=== PATIENT | female | born 1985 | race Caucasian/White ===

== ENCOUNTER 2024-07-12 11:23 | Emergency (ER) | payer BC, SELFPAY ==
--- NOTE | 2024-07-12 11:30 | ED.GENMED ---
History of Present Illness
General
Chief Complaint: Crisis Evaluation
Source: patient, family (Father) and police
Exam Limitations: clinical condition
Time Seen by Provider: 07/12/24 11:28
Nursing documentation reviewed up to this point in time: agreed with
History of Present Illness
History of Present Illness:
39-year-old female with a past medical history of PTSD, anxiety, bipolar disorder who presents to the emergency room in police custody brought in on a 302 which was filed by police due to paranoia and mirella. She is accompanied by her father.
According to police report patient has had multiple calls to 911 reporting that she is being stalked. They did a wellness check and found that her house was disheveled and patient did not appear to be caring for herself. She apparently has been
awake for about 5 days according to the father. He says this is consistent with prior episodes of mirella. Patient is very agitated and difficult to redirect�she is having flights of ideas and is very paranoid.
Past History
Past History
ED Past Medical History: Psychiatric (Anxiety, bipolar disorder, psychosis)
ED Past Surgical History: None
Patient has exhibited threatening behavior?: No
Social History
Tobacco: Non-smoker
Alcohol: Occasional
Drug: Marijuana
Personal: Single
Living: with family
Employment: Not employed
Family History
Family History: Other (Noncontributory)
Review of Systems
Review of Systems
Unable to obtain full review of systems at this time due to: due to acuity
All Other Systems: Not applicable
Phy Exam
Physical Exam
Physical Exam:
General: Patient appears disheveled, pacing around the room, very agitated
HEENT: protecting airway
Neck: appears supple
CV: No evidence of cyanosis
Resp: No accessory muscle use
Abd: Non-distended
Extremities: No deformities
Neuro: Alert
Psych: Patient is agitated, paranoid, flights of ideas and pressured speech; reports anxious mood and has a labile affect
Skin: Intact
Scores
Heart Failure Risk
Heart Failure Risk Score: Not Applicable
Heart Score for Chest Pain Patients
STEMI patient?: Not applicable
Withdrawal Assessment of Alcohol
Withdrawal Assessment Completed?: Not applicable
Course
Orders/Labs/Results
Orders:
Orders
07/12/24 11:29
Haloperidol Lactate [Haldol] 5 mg .ROUTE .STK-MED ONE
Lorazepam [Ativan] 2 mg .ROUTE .STK-MED ONE
07/12/24 11:30
Haloperidol Lactate [Haldol] 5 mg IM NOW STA
Lorazepam [Ativan] 2 mg IM NOW STA
07/12/24 11:37
Drug Screen, Urine [Urine Drug Abuse Screen] Urgent
Test Result ONCE
07/12/24 11:38
Electrocardiogram (*1) Urgent
Reason for Study: QTc Monitoring
EKG- Treatment ONCE
07/12/24 12:36
Acetaminophen Urgent
Alcohol Urgent
Complete Blood Count/With Diff Urgent
Comprehensive Metabolic Panel Urgent
HCG, Serum Qualitative Screen Urgent
Abnormal Lab Results
07/12/24
12:36
WBC 15.2 H 10^3/uL
(4.8-10.8)
Plt Count 410 H 10^3/uL
(130-400)
Abs Immat Gran (auto) 0.1 H 10^3/uL
(0-0.05)
Absolute Neuts (auto) 12.7 H 10^3/uL
(1.4-6.5)
Absolute Monos (auto) 0.7 H 10^3/uL
(0.1-0.6)
Neutrophils % 83.7 H %
(42.2-75.2)
Lymphocytes % 10.7 L %
(20.5-51.1)
Carbon Dioxide 17 L mmol/L
(22-30)
Glucose 120 H mg/dl
(70-99)
AST 39 H U/L
(14-36)
Acetaminophen < 10 L ug/ml
(10-30)
07/12/24 12:36
07/12/24 12:36
Vital Signs
Initial and Last Documented VS:
Initial Vital Signs
Temp Pulse Resp BP Pulse Ox
37.1 C 112 20 163/106 96
07/12/24 11:44 07/12/24 11:44 07/12/24 11:44 07/12/24 11:44 07/12/24 11:44
Last Documented Vital Signs
Temp Pulse Resp BP Pulse Ox
37.1 C 112 20 163/106 96
07/12/24 11:44 07/12/24 11:44 07/12/24 13:00 07/12/24 11:44 07/12/24 11:44
MDM/Problems Addressed
Differential Diagnosis Includes:
Mirella, schizophrenia/psychotic disorder
MDM/Problems Addressed:
39-year-old female presents to the emergency room on a 302 for paranoia and manic behavior. Multiple visits in the past and hospitalizations for this in the past. She is very agitated, screaming and difficult to redirect�she is clearly very
paranoid. Will treat with Haldol/Ativan for chemical restraint as patient actively trying to leave the ER and paranoid/psychotic state. Crisis team at bedside during initial assessment. Will send screening labs and monitor pending psychiatry
evaluation.
Labs reviewed and no clinically significant abnormalities. EKG shows acceptable QTc. Clinical reassessment patient is resting comfortably in bed now. She is much more coherent still reporting some paranoid thoughts but appears much more calm.
She was seen by our psychiatrist here after receiving sedative medications�psychiatry discharging from 302 commitment instead opting for intense outpatient treatment. Patient working with our crisis team to arrange for intensive outpatient
treatment; ultimately will be discharged.
Chronic conditions affecting care:
PTSD, bipolar disorder
*Pulse Oximetry
Patient hypoxic: no
*EKG
Interpreted by ED Provider?: Yes
Heart Rate: 81
Rate: normal
Rhythm: sinus
[place]: normal axis
Interval: normal interval and normal QT interval
QRS Pattern: normal QRS
Ischemia: no ischemia
*Critical Care Note
Total Time (30-74mins, 75-104mins- exclusive of procedures): Not Applicable
Data Reviewed
Source: patient, records, family and police
Patient Management
Social determinants of health affecting care: Living situation
Discussion with other providers: Continuous Absorption Process Operator (Discussed with psychiatrist) and Other (Discussed with crisis team)
ED Attending Note
-
Portions of this chart may have been created with voice recognition software.� Occasional wrong word or��sound alike� substitutions may have occurred due to the inherent limitations of voice recognition software.
Discharge Plan
Departure
Discharge Problem:
Bipolar disorder with severe mirella, Paranoid behavior
Instructions: Bipolar disorder
Prescriptions:
No Action
norethindrone ac-eth estradiol [10/30 (21)] 1 TAB tablet
1 tab PO DAILY
Activity Restrictions/Additional Instructions:
Follow-up with the intensive outpatient psychiatric treatment program as directed by our crisis team.
Interventions
Interventions:
*Risk Screen - Suicide Last Done: 07/12/24 11:45
*General Assessment Last Done: 07/12/24 11:26
*Neglect/Abuse Screening Last Done: 07/12/24 11:45
*ED COVID-19 Vaccine History Last Done: 07/12/24 11:45
ED-Psychological Assessment Last Done: 07/12/24 11:46
Discharge Date and Time
Print Language: GREENLANDIC
[2024-07-12] MEDS: ATIVAN 2 MG IM (11:33)
[2024-07-12] MEDS: HALDOL 5 MG IM (11:33)
[2024-07-12 11:44] VITALS: BP 163/106
[2024-07-12 12:47] LABS: % Basophils 0.5 % (0-2); % Eosinophils 0.1 % (0-6); % Immature Granulocytes 0.4 % (0-0.5); % Lymphocytes 10.7 % (20.5-51.1); % Monocytes 4.6 % (1.7-9.3); % Neutrophils 83.7 % (42.2-75.2); Absolute Basophils 0.1 10^3/uL (0-0.2); Absolute Immature Granulocytes 0.1 10^3/uL (0-0.05); Absolute Lymphocytes 1.6 10^3/uL (1.2-3.4); Absolute Monocytes 0.7 10^3/uL (0.1-0.6); Absolute Neutrophils 12.7 10^3/uL (1.4-6.5); Hematocrit 42.6 % (37.0-47.0); Hemoglobin 15.2 g/dL (12.0-16.0); Mean Corp Hgb Conc. 35.7 g/dL (33.0-37.0); Mean Corpuscular Volume 86.9 fL (81.0-99.0); Mean Platelet Volume 9.1 fL (7.4-10.4); Nucleated Red Blood Cells % 0 %; Platelet Count 410 10^3/uL (130-400); Red Cell Dist. Width 12.4 % (11.5-14.5); White Blood Cell Count 15.2 10^3/uL (4.8-10.8)
[2024-07-12 13:01] LABS: HCG, Serum Qualitative Screen Negative
[2024-07-12 13:05] LABS: ALT (SGPT) 30 U/L (0-35); AST (SGOT) 39 U/L (14-36); Acetaminophen < 10 ug/ml (10-30); Albumin 4.8 g/dl (3.5-5.0); Alkaline Phosphatase 91 U/L (38-126); Blood Urea Nitrogen 14 mg/dl (7-17); Calcium 10.1 mg/dl (8.4-10.2); Carbon Dioxide 17 mmol/L (22-30); Chloride 107 mmol/L (98-107); Glucose 120 mg/dl (70-99); Potassium 4.1 mmol/L (3.5-5.1); Sodium 140 mmol/L (135-145); Total Bilirubin 0.9 mg/dl (0.2-1.3); Total Protein 7.3 g/dl (6.3-8.2); eGFR > 60.00
[2024-07-12 13:11] LABS: Alcohol None Detected
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
[2024-07-12 15:51] VITALS: BP 144/89
== END 2024-07-12 16:12 | disposition home or self-care (01) ==
LOC: EMR 11:23
PROVIDERS: EMERGENCY PHYSICIAN Emergency Medicine; OTHER PHYSICIAN Psychiatry & Neurology Psychiatry
DX: F31.9 Bipolar disorder, unspecified (principal); F22 Delusional disorders; F30.9 Manic episode, unspecified; R45.1 Restlessness and agitation; Z65.3 Problems related to other legal circumstances; M32.9 Systemic lupus erythematosus, unspecified; F29 Unspecified psychosis not due to a substance or known physiological condition; F41.9 Anxiety disorder, unspecified; F43.10 Post-traumatic stress disorder, unspecified; J45.909 Unspecified asthma, uncomplicated; Z88.8 Allergy status to other drugs, medicaments and biological substances; Z91.012 Allergy to eggs; Z91.040 Latex allergy status
CPT/HCPCS: 99284; 96372 ×2; 80053; 80143; 82077; 84703; 85025; 93005

== ENCOUNTER 2024-07-14 03:26 | Emergency (ER) | payer BC, SELFPAY ==
--- NOTE | 2024-07-14 03:46 | ED.GENMED ---
History of Present Illness
General
Chief Complaint: Crisis Evaluation
Source: patient, ambulance crew and police
Exam Limitations: clinical condition
Time Seen by Provider: 07/14/24 03:46
History of Present Illness
History of Present Illness:
39-year-old female presents after she was earlier here in triage and was somewhat manic. She was stating that there was someone in her house. Security was called and railroader did not take her to the house to reassure her. The patient was recently
released from a 302. Police states that she has been quite manic and rambling. the pt is quite manic on evaluation. she does not report SI
Past History
Past History
ED Past Medical History: Psychiatric (Anxiety, bipolar disorder, psychosis)
ED Past Surgical History: None
Patient has exhibited threatening behavior?: No
Social History
Tobacco: Non-smoker
Alcohol: Occasional
Drug: Marijuana
Personal: Single
Living: with family
Employment: Not employed
Family History
Family History: Other (Noncontributory)
Phy Exam
Physical Exam
Physical Exam:
CONSTITUTIONAL Vital signs reviewed, Patient alert and oriented to person. Agitated
HEAD atraumatic, normocephalic.
EYES eyelids normal to inspection, Extraocular muscles intact, Conjunctiva normal, Sclera normal.
NECK normal range of motion, Trachea midline, no jugular venous distention.
RESP no respiratory distress
BACK No obvious deformities
UPPER EXTREMITY Gross Range of motion normal, gross motor strength normal, some healing bruising to the inside of the right upper extremity.
LOWER EXTREMITY Gross range of motion normal, Gross motor strength normal
NEURO Speech pressured, No focal motor deficits include, Cranial Nerves intact to screening exam.
SKIN Skin warm, dry, and normal in color.
PSYCHIATRIC Patient agitated, rambling, pressured speech
Course
Orders/Labs/Results
Orders:
Orders
07/14/24 03:33
Haloperidol Lactate [Haldol] 10 mg .ROUTE .STK-MED ONE
Lorazepam [Ativan] 2 mg .ROUTE .STK-MED ONE
07/14/24 03:47
Haloperidol Lactate [Haldol] 10 mg IM NOW STA
07/14/24 03:51
Lorazepam [Ativan] 2 mg IM NOW STA
07/14/24 03:55
Test Result ONCE
07/14/24 04:02
Fentanyl, Urine Urgent
, Urine Qualitative Screen [HCG, Urine Qualitative Screen] Urgent
Date Specimen was Collected: 07/14/24
Time Specimen was Collected: 03:55
Urine Drug Abuse Screen Urgent
Date Specimen was Collected: 07/14/24
Time Specimen was Collected: 03:55
07/14/24 04:20
Crisis Consult Urgent
Reason for Consult: manic behavior
Abnormal Lab Results
07/14/24
04:02
U Benzodiazepines Scrn Positive H
(Negative)
U Marijuana (THC) Screen Positive H
(Negative)
Vital Signs
Initial and Last Documented VS:
Initial Vital Signs
Temp Pulse BP Pulse Ox
97.9 F 118 151/94 97
07/14/24 05:03 07/14/24 05:03 07/14/24 05:03 07/14/24 05:03
Last Documented Vital Signs
Temp Pulse Resp BP Pulse Ox
97.9 F 118 18 151/94 97
07/14/24 05:03 07/14/24 05:03 07/14/24 06:00 07/14/24 05:03 07/14/24 05:03
MDM/Problems Addressed
MDM/Problems Addressed:
Acute roberto, acute psychosis
*Pulse Oximetry
Patient hypoxic: no
*Critical Care Note
Total Time (30-74mins, 75-104mins- exclusive of procedures): 30 minutes
Data Reviewed
Source: patient and police
Patient Management
Escalation/DeEscalation of care consider admission/obs:
302 by police. Patient is acutely psychotic. Settled down after Haldol and Ativan. Admit to psychiatric facility
ED Attending Note
-
Portions of this chart may have been created with voice recognition software.� Occasional wrong word or��sound alike� substitutions may have occurred due to the inherent limitations of voice recognition software.
Discharge Plan
Departure
Patient Disposition: Psych Facility
Date of Disposition: 07/14/24
Time of Disposition: 03:46
Discharge Problem:
Acute psychosis
Prescriptions:
No Action
norethindrone ac-eth estradiol [10/30 ()] 1 TAB tablet
1 tab PO DAILY
Interventions
Interventions:
*Risk Screen - Suicide Last Done: 07/14/24 04:19
*General Assessment Last Done: 07/14/24 04:19
*Neglect/Abuse Screening Last Done: 07/14/24 04:19
*ED COVID-19 Vaccine History Last Done: 07/14/24 04:18
ED-Psychological Assessment Last Done: 07/14/24 04:17
Discharge Date and Time
Print Language: SENEGALESE
[2024-07-14] MEDS: HALDOL 10 MG IM (03:50)
[2024-07-14] MEDS: ATIVAN 2 MG IM ×2 (03:52→07:51)
[2024-07-14 04:25] LABS: HCG, Urine Qualitative Screen Negative
[2024-07-14 05:03] VITALS: BP 151/94
[2024-07-14 05:06] LABS: Amphetamines Negative (Negative); Barbiturates Negative (Negative); Benzodiazepines Positive (Negative); Buprenorphine Negative (Negative); Cocaine Negative (Negative); Marijuana Positive (Negative); Methadone Negative (Negative); Methamphetamines Negative (Negative); Opiates Negative (Negative); Phencyclidine Negative (Negative); Tricyclic Antidepressants Negative (Negative)
[2024-07-14 05:22] LABS: Fentanyl, Urine Negative (Negative)
--- NOTE | 2024-07-14 08:34 | ED.CRISIS ---
ED Crisis Note
ED Crisis Note
Subjective:
Patient currently a psychiatric committal for psychosis. Agitated pacing the halls.
Objective:
Pacing agitated not an immediate danger could progress to that level. In no distress.
Assessment/Plan:
Patient had received Ativan. Contacted psychiatry for further input. However since that discussion patient is now asleep. Await psychiatry opinion
--- NOTE | 2024-07-14 10:25 | W.PN.UPDATE ---
Update Note
Progress Note Update
attempted to see patient but she was sleeping. she is known to me from consult a few days ago. will return later in the day
--- NOTE | 2024-07-14 11:45 | CON.MD ---
Addendum entered and electronically signed by Glenn Hi MD 07/14/24 14:50:
patient accepted at [facility] and will be leaving this evening ativan prn ordered for anxiety agitation
Original Note:
Consultation - Medical
-
patient seen chart reviewed. this patient is well known to me . she is 39 years old and was here on 07/12/2024 under much the same circumstances. the police petitioned on a 302. i allowed her to leave bc she did not seem an imminent threat to self
or others but the same exact situation repeated itself. currently she is rather sedated having received ativan and haldol this am for agitation but she told me the same thing that someone was in her home and she was fearful. at this point she is
clearly paranoid and delusional and that is significantly interfering with her ability to remain in the community in her home comfortably and safely. she has hx of being hospitalized in the past and being prescribed antipsychotics which she then
stops. the last one she took was latuda. please see my evaluation from 07/12 for full details
mse sedated slurred speech from medication given to her earlier this am. thought process rambling and tangential delusion paranoid insight judgment lacking. denies suicidality
dx schizoaffective disorder vs bipoliar with psychosis
plan 302 has been upheld by telepsych . i agree with this. crisis will seek a psychiatric hospital bed for patient.
[2024-07-14 11:46] VITALS: BP 123/84
[2024-07-14 12:03] LABS: COVID-19 Antigen Negative (Negative)
== END 2024-07-14 21:30 ==
LOC: EMR 03:26
PROVIDERS: Emergency Medicine; CONSULT PHYSICIAN Psychiatry & Neurology Psychiatry; EMERGENCY PHYSICIAN Emergency Medicine
DX: F23 Brief psychotic disorder (principal); R45.1 Restlessness and agitation; F22 Delusional disorders; Z11.52 Encounter for screening for COVID-19; F31.9 Bipolar disorder, unspecified; F29 Unspecified psychosis not due to a substance or known physiological condition; F41.9 Anxiety disorder, unspecified; F30.9 Manic episode, unspecified; Z88.8 Allergy status to other drugs, medicaments and biological substances; Z91.012 Allergy to eggs; Z91.040 Latex allergy status
CPT/HCPCS: 99291; 96372 ×3; 80306; 80307; 81025; 87811

== ENCOUNTER 2024-08-03 10:21 | Emergency (ER) | payer BC, SELFPAY ==
[2024-08-03 10:34] VITALS: BP 158/103
[2024-08-03 10:48] LABS: Urine Albumin Negative (Neg - Trace); Urine Bilirubin Negative (Negative); Urine Character Clear (Clear); Urine Color Yellow; Urine Glucose Negative (Negative); Urine Ketone 1+ (Negative); Urine Leukocyte Negative (Negative); Urine Nitrite Negative (Negative); Urine Occult Blood Negative (Negative); Urine Specific Gravity 1.015 (<1.030); Urine Urobilinogen Negative (Neg - 1+)
[2024-08-03 10:57] LABS: HCG, Urine Qualitative Screen Negative
--- NOTE | 2024-08-03 11:03 | ED.GENMED ---
History of Present Illness
General
Chief Complaint: Crisis Evaluation
Source: patient
Exam Limitations: none
Time Seen by Provider: 08/03/24 10:46
Nursing documentation reviewed up to this point in time: agreed with
History of Present Illness
History of Present Illness:
39-year-old female presents via police (who filed a 302 ). Patient presents rambling very manic not making sense. At this time she is cooperative. She has no physical complaints. She is able to tell me month date and year. Police reported she
went into [employer] house and Pt's father called police.
She is cooperative .
Past History
Past History
ED Past Medical History: Psychiatric (Anxiety, bipolar disorder, psychosis)
ED Past Surgical History: None
Patient has exhibited threatening behavior?: No
Social History
Tobacco: Non-smoker
Alcohol: Occasional
Drug: Marijuana
Personal: Single
Living: with family
Employment: Not employed
Family History
Family History: Other (Noncontributory)
Review of Systems
Review of Systems
Allergies reviewed?: Yes
All Other Systems: ROS reviewed and negative except as documented in HPI and ROS
Constitutional: Reports no symptoms
Respiratory: Reports no symptoms
Cardiac: Reports no symptoms
ABD/GI: Reports no symptoms
Musculoskeletal: Reports no symptoms
Skin: Reports no symptoms
Psychiatric: Reports no symptoms
Phy Exam
General Physical Exam
General Presentation: no apparent distress
General age: appears stated age
General Skin: warm and dry
General Habitus: normal
General Mental: anxious
General Hydration: appears well hydrated
Cardiovascular Exam
Cardiovascular Exam: regular rate/rhythm, no murmur and normal peripheral pulses
Pulmonary Exam
Pulmonary Exam: lungs clear and no respiratory distress
Neurological Exam
Neurological Exam: alert and oriented x3
Musculoskeletal Exam
Musculoskeletal Exam: full ROM
Skin Exam
Skin Exam: normal color and warm/dry
Psychiatric Exam
Psychiatric Exam: anxious and other (Manic)
Course
Orders/Labs/Results
Orders:
Orders
08/03/24 10:31
Test Result ONCE
08/03/24 10:32
HCG, Urine Qualitative Screen Urgent
Date Specimen was Collected: 08/03/24
Time Specimen was Collected: 10:
Urinalysis Reflex To Culture Urgent
Date Specimen was Collected: 08/03/24
Time Specimen was Collected: 10:
Urine Drug Abuse Screen Urgent
Date Specimen was Collected: 08/03/24
Time Specimen was Collected: 10:31
08/03/24 11:04
Crisis Consult Urgent
Reason for Consult: crisis consult
08/03/24 11:11
Test Result ONCE
08/03/24 11:18
Acetaminophen Urgent
Alcohol Urgent
Complete Blood Count/With Diff Urgent
Comprehensive Metabolic Panel Urgent
HCG, Serum Qualitative Screen Urgent
[place] Urgent
Comment: ADD ON
Salicylate Urgent
08/03/24 11:43
Add On- LAB Urgent
Tests Added?: lithium
08/03/24 13:45
Haloperidol [Haldol] 2 mg PO NOW STA
Lorazepam [Ativan] 1 mg PO Q4HPRN PRN
Abnormal Lab Results
08/03/24 08/03/24
10:32 11:18
WBC 16.6 H 10^3/uL
(4.8-10.8)
Abs Immat Gran (auto) 0.1 H 10^3/uL
(0-0.05)
Absolute Neuts (auto) 15.5 H 10^3/uL
(1.4-6.5)
Absolute Lymphs (auto) 0.8 L 10^3/uL
(1.2-3.4)
Immature Gran % 0.8 H %
(0-0.5)
Neutrophils % 93.3 H %
(42.2-75.2)
Lymphocytes % 4.6 L %
(20.5-51.1)
Monocytes % 1.0 L %
(1.7-9.3)
Carbon Dioxide 19 L mmol/L
(22-30)
Glucose 131 H mg/dl
(70-99)
AST 37 H U/L
(14-36)
ALT 59 H U/L
(0-35)
Alkaline Phosphatase 160 H U/L
(38-126)
Urine Ketones 1+ A
(Negative)
Salicylates < 1.0 L mg/dl
(2.0-20.0)
Acetaminophen < 10 L ug/ml
(10-30)
[place] < 0.2 L mmol/L
(0.6-1.2)
U Marijuana (THC) Screen Positive H
(Negative)
08/03/24 11:18
08/03/24 11:18
Vital Signs
Initial and Last Documented VS:
Initial Vital Signs
Temp Pulse Resp BP Pulse Ox
98.3 F 120 16 158/103 98
08/03/24 10:34 08/03/24 10:34 08/03/24 10:34 08/03/24 10:34 08/03/24 10:34
Last Documented Vital Signs
Temp Pulse Resp BP Pulse Ox
98.3 F 98 16 161/98 99
08/03/24 10:34 08/03/24 15:10 08/03/24 16:00 08/03/24 15:10 08/03/24 15:10
MDM/Problems Addressed
MDM/Problems Addressed:
Patient is a 39-year-old female with past medical history of bipolar disorder presents to the ER very manic brought by police. Patient is cooperative and has not required medication here. Patient is rambling anxious and manic however cooperative.
302 was filled out by police.
Patient was eval by psychiatry patient is agreeable at this time to hospitalization.
Father reports patient has not been taking her medicines and this is typical manic behavior for patient when not taking medications.
302 will be held as backup.
*Critical Care Note
Total Time (30-74mins, 75-104mins- exclusive of procedures): Not Applicable
Patient Management
Discussion with other providers: [employer] (Evaluated by psychiatry)
ED Attending Note
-
Portions of this chart may have been created with voice recognition software.� Occasional wrong word or��sound alike� substitutions may have occurred due to the inherent limitations of voice recognition software.
Discharge Plan
Departure
Patient Disposition: Psych Facility
Date of Disposition: 08/03/24
Time of Disposition: 16:07
Patient with high blood pressure during this ER visit?: Yes
Condition: Fair
Covid-19: Not Applicable
Discharge Problem:
Psychosis
Prescriptions:
No Action
norethindrone ac-eth estradiol [10/30 ()] 1 TAB tablet
1 tab PO DAILY
Referrals:
UNKNOWN - PT NOT,INTERVIEWE [Family Provider] -
Interventions
Interventions:
*Risk Screen - Suicide Last Done: 08/03/24 10:36
*General Assessment Last Done: 08/03/24 10:36
*Neglect/Abuse Screening Last Done: 08/03/24 10:36
ED- Fall Risk Assessment Last Done: 08/03/24 18:05
*ED COVID-19 Vaccine History Last Done: 08/03/24 10:36
*Nursing Disposition Last Done: 08/03/24 18:05
ED-Psychological Assessment Last Done: 08/03/24 10:36
Discharge Date and Time
Discharge Date/Time: 08/03/24 18:05
Print Language: [id number]
[2024-08-03 11:17] LABS: Amphetamines Negative (Negative); Barbiturates Negative (Negative); Benzodiazepines Negative (Negative); Buprenorphine Negative (Negative); Cocaine Negative (Negative); Marijuana Positive (Negative); Methadone Negative (Negative); Methamphetamines Negative (Negative); Opiates Negative (Negative); Phencyclidine Negative (Negative); Tricyclic Antidepressants Negative (Negative)
[2024-08-03 11:29] LABS: % Basophils 0.3 % (0-2); % Immature Granulocytes 0.8 % (0-0.5); % Lymphocytes 4.6 % (20.5-51.1); % Neutrophils 93.3 % (42.2-75.2); Absolute Basophils 0.1 10^3/uL (0-0.2); Absolute Immature Granulocytes 0.1 10^3/uL (0-0.05); Absolute Lymphocytes 0.8 10^3/uL (1.2-3.4); Absolute Monocytes 0.2 10^3/uL (0.1-0.6); Absolute Neutrophils 15.5 10^3/uL (1.4-6.5); Hematocrit 38.6 % (37.0-47.0); Hemoglobin 13.3 g/dL (12.0-16.0); Mean Corp Hgb Conc. 34.5 g/dL (33.0-37.0); Mean Corpuscular Hgb 29.6 pg (27.0-31.0); Mean Corpuscular Volume 85.8 fL (81.0-99.0); Mean Platelet Volume 8.4 fL (7.4-10.4); Nucleated Red Blood Cells % 0 %; Platelet Count 400 10^3/uL (130-400); Red Cell Dist. Width 12.7 % (11.5-14.5); White Blood Cell Count 16.6 10^3/uL (4.8-10.8)
[2024-08-03 11:36] LABS: HCG, Serum Qualitative Screen Negative
[2024-08-03 11:40] LABS: Blood Urea Nitrogen 16 mg/dl (7-17); Glucose 131 mg/dl (70-99)
[2024-08-03 11:41] LABS: ALT (SGPT) 59 U/L (0-35); AST (SGOT) 37 U/L (14-36); Acetaminophen < 10 ug/ml (10-30); Albumin 4.6 g/dl (3.5-5.0); Alkaline Phosphatase 160 U/L (38-126); Calcium 10.1 mg/dl (8.4-10.2); Carbon Dioxide 19 mmol/L (22-30); Chloride 105 mmol/L (98-107); Potassium 4.6 mmol/L (3.5-5.1); Salicylate < 1.0 mg/dl (2.0-20.0); Sodium 138 mmol/L (135-145); Total Bilirubin 0.3 mg/dl (0.2-1.3); Total Protein 7.3 g/dl (6.3-8.2); eGFR > 60.00
[2024-08-03 11:42] LABS: Alcohol None Detected
[2024-08-03 13:06] LABS: Lithium < 0.2 mmol/L (0.6-1.2)
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
[2024-08-03] MEDS: HALDOL 2 MG PO (14:06)
[2024-08-03 15:10] VITALS: BP 161/98
--- NOTE | 2024-08-03 16:43 | W.PN.UPDATE ---
Update Note
Progress Note Update
patient was accepted at [facility] and agrees to go there on a voluntary basis. transport is being arranged.
== END 2024-08-03 18:05 ==
LOC: EMR 10:21
PROVIDERS: Nurse Practitioner; EMERGENCY PHYSICIAN Emergency Medicine; OTHER PHYSICIAN Psychiatry & Neurology Psychiatry
DX: F29 Unspecified psychosis not due to a substance or known physiological condition (principal); F31.9 Bipolar disorder, unspecified; R03.0 Elevated blood-pressure reading, without diagnosis of hypertension
CPT/HCPCS: 99285; 80053; 80143; 80178; 80179; 80306; 81003; 81025; 82077; 84703; 85025